=== PATIENT | male | born 1940 | race Caucasian/White ===

== ENCOUNTER → 2021-08-20 | Outpatient (CLI) | payer MEDICARE ==
[~2021-08-20] MED LIST: ACET325 PO; ASPI81CH; ASPI81CH PO; ATOR40TA PO; BENADRYL 25MG PO; CETI5 PO; CHOL10002; CHOL10002 PO; GLUC500 PO; IBUP400 PO; LISI20 PO; MULTIVITAMIN PO; MULVIT PO; VERA120ERB PO; XARELTO20 MG PO
== END | disposition home or self-care (01) ==
LOC: LAB SHORT 11:14 → LAB 11:14
DX: D48.5 Neoplasm of uncertain behavior of skin (principal); L81.4 Other melanin hyperpigmentation
CPT/HCPCS: 88305

== ENCOUNTER 2023-04-24 09:59 | Inpatient (IN) | payer MEDICARE, OTHER ==
[~2023-04-24] VITALS: Ht 190.5 cm; Wt 86.3 kg
[~2023-04-24 09:59] MED LIST changes: -CHOL10002 PO; +VITAMIN D310 MC4 PO
[2023-04-24 12:26] LABS: BASOPHILS ABSOLUTE AUTO 0.08 K/mm3 (0.00-0.23); BASOPHILS PERCENT AUTO 1 % (0-2); EOSINOPHILS ABSOLUTE AUTO 0.06 K/mm3 (0.00-0.68); EOSINOPHILS PERCENT AUTO 1 % (0-6); Hematocrit 43.2 % (37.0-53.0); Hemoglobin 14.2 g/dL (13.5-17.5); IMMATURE GRAN ABSOLUTE AUTO 0.05 K/mm3 (0.00-0.10); IMMATURE GRAN PERCENT AUTO 1 % (0-1); LYMPHOCYTES ABSOLUTE AUTO 1.84 K/mm3 (0.84-5.20); LYMPHOCYTES PERCENT AUTO 19 % (21-46); MONOCYTES ABSOLUTE AUTO 0.56 K/mm3 (0.16-1.47); MONOCYTES PERCENT AUTO 6 % (4-13); Mean Corpuscular HGB 31.3 pg (26.0-34.0); Mean Corpuscular HGB Conc 32.9 g/dL (31.5-36.5); Mean Corpuscular Volume 95 fL (80-100); NEUTROPHILS ABSOLUTE AUTO 7.06 K/mm3 (1.96-9.15); NEUTROPHILS PERCENT AUTO 73 % (41-73); Platelet Count 230 K/mm3 (150-400); RDW Coefficient Variation 12.8 % (11.7-14.2); RDW Standard Deviation 45.1 fL (35.1-46.3); Red Blood Cell Count 4.54 M/mm3 (4.30-5.90); White Blood Cell Count 9.65 K/mm3 (4.00-11.30)
[2023-04-24 12:37] LABS: Albumin, Blood 4.1 g/dL (3.4-5.0); Albumin/Globulin Ratio 1.1 (0.8-1.8); Bilirubin, Total 0.9 mg/dL (0.1-1.0); Bun/Creatinine Ratio 27.5 (12.0-20.0); Calcium, Blood 9.3 mg/dL (8.5-10.1); Creatinine, Blood 1.09 mg/dL (0.60-1.20); Globulin, Blood 3.9 g/dL (2.2-4.0); Magnesium, Blood 2.2 mg/dL (1.6-2.4)
[2023-04-24 12:43] LABS: C-REACTIVE PROTEIN, EXT RANGE 0.944 mg/dL (0.000-0.300)
[2023-04-24 15:58] VITALS: BP 172/93
[2023-04-24] MEDS ORDERED: LOSA50 PO (16:03)
[2023-04-24] MEDS ORDERED: ATOR20 PO (16:04)
--- NOTE | 2023-04-24 19:22 | NUR ---
PT ADMITTED THIS AFT. CHEST PAIN WHICH HE HAD FOR 3 DAYS, RESOLVED AT THIS TIME. TROP TRENDING DOWN, NOW AT 84. A.O X3, PLEASANT COOP . DENIES PAIN AT THIS TIME. HERE FOR A CARDIAC WORKUP. NO ORDERS AT THIS TIME. PLACED PT ON NO CAFFEINE, FOR POSSIBLE STRESS TEST. PT INDEPENDANT IN ROOM. BED IN LOW POSITION, CALL LITE IN REACH, CALLS APPROP
[2023-04-24 20:08] VITALS: BP 129/77
[2023-04-25 05:02] LABS: BASOPHILS ABSOLUTE AUTO 0.07 K/mm3 (0.00-0.23); BASOPHILS PERCENT AUTO 1 % (0-2); EOSINOPHILS PERCENT AUTO 1 % (0-6); Hematocrit 41.7 % (37.0-53.0); IMMATURE GRAN ABSOLUTE AUTO 0.02 K/mm3 (0.00-0.10); IMMATURE GRAN PERCENT AUTO 0 % (0-1); LYMPHOCYTES ABSOLUTE AUTO 1.96 K/mm3 (0.84-5.20); LYMPHOCYTES PERCENT AUTO 27 % (21-46); MONOCYTES ABSOLUTE AUTO 0.57 K/mm3 (0.16-1.47); MONOCYTES PERCENT AUTO 8 % (4-13); Mean Corpuscular HGB 31.5 pg (26.0-34.0); Mean Corpuscular HGB Conc 33.6 g/dL (31.5-36.5); Mean Corpuscular Volume 94 fL (80-100); Mean Platelet Volume 8.7 fL (9.1-12.4); NEUTROPHILS ABSOLUTE AUTO 4.57 K/mm3 (1.96-9.15); NEUTROPHILS PERCENT AUTO 63 % (41-73); Platelet Count 189 K/mm3 (150-400); RDW Coefficient Variation 12.6 % (11.7-14.2); RDW Standard Deviation 43.8 fL (35.1-46.3); Red Blood Cell Count 4.44 M/mm3 (4.30-5.90); White Blood Cell Count 7.29 K/mm3 (4.00-11.30)
[2023-04-25 05:20] VITALS: BP 144/75
--- NOTE | 2023-04-25 05:38 | NUR ---
SUMMARY: PT A/OX4, IS INDPENDENT IN ROOM AND SPECIFIES NEEDS. HE REMAINS ON TELE IN NSR AT 60'S BPM AND DENIES CP AND ALL OTHER S/S CARDIAC DISTRESS. MD JALILATED PLAN FOR STRESS TEST TODAY BUT ORDER HAS NOT BEEN PLACED, CAFFEINE IS BEING HELD JUST IN CASE. TROPS TRENDING DOWNWARD, NOW 86. NO ACUTE CHANGES, VSS/AFEBRILE. WCTM AND REPORT TO DAY RN.
[2023-04-25 05:47] LABS: Albumin, Blood 3.5 g/dL (3.4-5.0); Albumin/Globulin Ratio 1.1 (0.8-1.8); Bilirubin, Total 0.8 mg/dL (0.1-1.0); Bun/Creatinine Ratio 25.2 (12.0-20.0); Calcium, Blood 8.6 mg/dL (8.5-10.1); Creatinine, Blood 1.03 mg/dL (0.60-1.20); Globulin, Blood 3.3 g/dL (2.2-4.0); Magnesium, Blood 1.9 mg/dL (1.6-2.4); Phosphorus, Blood 3.2 mg/dL (2.5-4.9); Potassium, Blood 4.5 mmol/L (3.5-5.5); Total Protein, Blood 6.8 g/dL (6.4-8.2)
[2023-04-25 08:00] VITALS: BP 149/93
[2023-04-25 17:18] VITALS: BP 125/70
--- NOTE | 2023-04-25 17:56 | NUR ---
SHIFT SUMMARY PT A&OX4 AND PLEASANT. INDEPENDENT IN ROOM. AT BEDSIDE T/O DAY. PT COMPLETED FIRST PART OF STRESS TEST TODAY. SECOND PART OF STRESS TEST TO BE COMPLETED TOMORROW. PT INFORMED OF NO CAFFINE AFTER 1999 TONIGHT AND NPO AT MIDNIGHT.BP SLIGHTLY ELEVATED THIS MORNING BUT WNL THIS AFTERNOON. ELEVATED NO EVENTS ON TELE. NO C/O OF CHEST OR LEFT ARM PAIN. BED IN LOWEST POSITION AND CALL LIGHT IN REACH.
[2023-04-25 21:00] VITALS: BP 125/77
--- NOTE | 2023-04-26 06:17 | NUR ---
SUMMARY: PT A/OX4, INDEPENDENT IN ROOM AND SPECIFIES NEEDS APPROPRIATELY. HE REMAINS S.WAYNE-NSR ON TELE AT 50'S-60'S BPM AND DENIES CP AND ALL OTHER S/S CARDIAC DISTRESS. 2ND PART OF STRESS PLANNED TODAY AT 0830. HE'S BEEN NPO SINCE [place] AND W/O CAFFEINE SINCE DAY SHIFT. NO ACUTE CHANGES, VSS/AFEBRILE. WCTM AND REPORT TO DAY RN.
[2023-04-26 07:34] VITALS: BP 142/75
[2023-04-26 15:56] VITALS: BP 127/65
--- NOTE | 2023-04-26 19:26 | NUR ---
SHIFT SUMMARY PT COMPLETED SECOND PART OF STRESS TEST TODAY. AFTER REVIEWING RESULTS, DR GAR WOULD LIKE TO KEEP PT ANOTER NIGHT. EMBRYOLOGY TEACHER, DR BENSON CONSULTED. THIS NURSE SPOKE WITH DR BENSON BUT MARCELINO BUT MARCELINO WAS WITH ANOTHER PT AND ASKED TO BE CALLED TOMORROW. DR GAR REQUESTED THAT PT IS NPO AT MIDNIGHT FOR POSSIBLE ANGIOGRAM TOMORROW. PT DENIES CP/PRESSURE. INDPENDENT IN ROOM. AT BEDSIDE T/O DAY. BED IN LOWEST POSITION AND CALL LIGHT IN REACH.
[2023-04-26 19:50] VITALS: BP 114/73
[2023-04-27] VITALS (8 sets, daily range): BP systolic 133–153; BP diastolic 78–94
[2023-04-27 05:06] LABS: BASOPHILS ABSOLUTE AUTO 0.07 K/mm3 (0.00-0.23); BASOPHILS PERCENT AUTO 1 % (0-2); EOSINOPHILS ABSOLUTE AUTO 0.11 K/mm3 (0.00-0.68); EOSINOPHILS PERCENT AUTO 2 % (0-6); Hematocrit 45.2 % (37.0-53.0); Hemoglobin 14.8 g/dL (13.5-17.5); IMMATURE GRAN ABSOLUTE AUTO 0.03 K/mm3 (0.00-0.10); IMMATURE GRAN PERCENT AUTO 0 % (0-1); LYMPHOCYTES PERCENT AUTO 33 % (21-46); MONOCYTES ABSOLUTE AUTO 0.59 K/mm3 (0.16-1.47); MONOCYTES PERCENT AUTO 8 % (4-13); Mean Corpuscular HGB 30.6 pg (26.0-34.0); Mean Corpuscular HGB Conc 32.7 g/dL (31.5-36.5); Mean Corpuscular Volume 94 fL (80-100); Mean Platelet Volume 8.8 fL (9.1-12.4); NEUTROPHILS ABSOLUTE AUTO 4.14 K/mm3 (1.96-9.15); NEUTROPHILS PERCENT AUTO 56 % (41-73); Platelet Count 228 K/mm3 (150-400); RDW Coefficient Variation 12.4 % (11.7-14.2); RDW Standard Deviation 43.3 fL (35.1-46.3); Red Blood Cell Count 4.83 M/mm3 (4.30-5.90); White Blood Cell Count 7.34 K/mm3 (4.00-11.30)
--- NOTE | 2023-04-27 05:38 | NUR ---
SHIFT SUMMARY NO EVENTS OVERNIGHT. PT HAS BEEN NPO SINCE MIDNIGHT INCASE PT NEEDS AN ANGIO TODAY IF RECOMMENDED BY CARDIOLOGY. Q1H FIRE SAFETY CHECKS COMPLETED WITH NO IGNITION SOURCES FOUND
[2023-04-27 06:06] LABS: Bun/Creatinine Ratio 30.3 (12.0-20.0); Creatinine, Blood 1.09 mg/dL (0.60-1.20); Potassium, Blood 4.5 mmol/L (3.5-5.5)
--- NOTE | 2023-04-27 13:29 | NUR ---
DR. BENSON IN TO SEE PT THIS MORNING AND PLANNED FOR ANGIOGRAM. AT PT SIDE DURING INTERVIEW AND AGREED TO PROCEDURE. NOW PICKED UP AND TAKEN TO [facility]. BELONGINGS TAKEN TO ROOM PCU 14. REPORT GIVEN TO JEREMIAS BAKER.
--- NOTE | 2023-04-27 14:52 | NUR ---
PT TRANSFERED TO PCU 14 POST ANGIOGRAM PT CAME TO THE ROOM VIA WHEELECHAIR POST ANGIO. THEY WENT THROUGH THE RIGHT RADIAL. HE HAS A TR BAND IN PLACE AND IT WILL NEED TO BE LEFT ON FOR TWO HOURS SINCE ACT >200. THERE IS A START OF 11CC'S OF AIR IN THE BALLOON. THIER IS NO SIGNS OF HEMATOMA, SWELLING, PAIN, OR BLEEDING. PT'S IS AT BEDSIDE. THEY WERE NOT ABLE TO FINISH THE ANGIO TODAY AND PLAN FOR THE PAITENT TO GO FOR ANOTHER ANGIOGRAM TOMORROW AND WILL GO THROUGH HIS GROIN. HE WILL BE NPO AT 0000 FOR THE PROCEDURE.
--- NOTE | 2023-04-27 18:35 | NUR ---
SHIFT SUMMARY PT TRANSFERED FROM MEDICAL FLOOR THIS AFTERNOON POST ANGIO. THEY ACCESSED HIS RIGHT RADIAL AND THE SITE IS RECOVERED OF 1824. NO SIGNS OF BLEEDING, HEMATOMA, N/T, OR PAIN. PT IS SBA DUE TO LINES AND HE HAS BEEN A&OX4/ FAIRLY IND IN THE ROOM. THE PT IS VERY PLEASENT AND CALLS APPROPRIATELY. ON TELE HE HAS BEEN SB/SR 50'S-70'S. HE IS ON ROOM AIR AND DENIES SOB. HE WILL BE NPO AT MIDNIGHT FOR A REPEAT ANGIOGRAM. NO ACUTE EVENTS SINCE ARRIVAL TO PCU 14. FAMILY AND PT EDUCATED ON FIRE IGNITION RISK AND SAFETY.
--- NOTE | 2023-04-27 18:45 | NUR ---
TR BAND RECOVERY INFLATED WITH 11CC'S AT 1430. WAITED TWO HOURS TO DEFLATE DO TO ACT >200. -2CC AT 1630, 9CC'S LEFT. -2CC AT 1645, 7CC'S LEFT. -2CC AT 1655, 5CC'S LEFT. -2CC [id number], 3CC'S LEFT. -3CC AT 1720, 0CC'S LEFT. TR BAND LEFT ON FOR ONE HOUR AT 1825 I REMOVED THE TR BAND AND RECOVERED THE SITE. SITE CLEANED WITH CHOLRIHEXIDINE AND A TEGADERM PALCED. ARM BOARD IN PLACE FOR REMINDERS TO NOT USE THE RIGHT WRIST.
[2023-04-28] VITALS (11 sets, daily range): BP systolic 74–151; BP diastolic 64–94
--- NOTE | 2023-04-28 06:32 | NUR ---
SHIFT SUMMARY PATIENT ALERT AND ORIENTED X4, STANDBY ASSIST TO THE RESTROOM. CURRENTLY NPO PENDING PROCEDURE. PATIENT HAS HAD NO COMPLAINTS OF CHEST PAIN OR SHORTNESS OF BREATH. NO SIGNS OF BLEEDING OR BRUSING AT ANGIO SITE ON R WRIST, ARM BOARD IN PLACE. PATIENT ON ROOM AIR. VITAL SIGNS STABLE. NO ACUTE ISSUES NOTED OVERNIGHT. PATIENT ASSESSED FOR IGNITION RISK AND EDUCATED ON FIRE SAFETY IN THE HOSPITAL. WILL CONTINUE TO MONITOR. CALL LIGHT WITHIN REACH.
--- NOTE | 2023-04-28 17:42 | NUR ---
SHIFT SUMMARY PT IS A&OX4, CALLS APPROPRIATELY, AND HAS BEEN IND IN THE ROOM. ON TELE THE PT HAS BEEN SR 70'S-80'S. HE IS ON RA AND DENIES SOB. PT HAD AN ANGIO TODAY AND THEY ACCESSED HIS RIGHT GROIN. AT 1900 HE WILL BE ABLE TO GET OUT OF BED. DR. BENSON WANTED HIM BR FOR 6 HOUR. HE HAS BEEN RAISED FIFTEEN DEGREES EVERY HOUR UNTIL HE WAS ABLE TO SIT UP TO 45 DEGREES. SITE HAS BEEN NON-TENDER, W/O HEMATOMA, BLEEDING, OOZING, OR BRUISING. THE SITE IS SEALED WITH CHG TEG AND IT IS D/C/I. NO ACUTE EVENTS, VSS. FAMILY AND PT ASSESSED AND EDUCATED ON FIRE IGNITION RISK.
--- NOTE | 2023-04-28 19:41 | NUR ---
ASSUMED CARE OF PT AT 1900 PT RESTING IN BED WITH AT BEDSIDE. PT UP AND WALKING AROUND UNIT ONE TIME. RESTLESS. GROIN AREA FREE FROM ANY ISSUES AT THIS TIME. C/D/I. BED IN LOW POSITION, CALL LIGHT WITHIN REACH. PT A/O X4. PT EDUCATED ON HAVING ONE STAFF PERSON IN ROOM IF PT IS UP OUT OF BED. PLEASE SEE FULL ASSESSMENT FOR FURTHER INFORMATION.
[2023-04-29] VITALS: BP 140/82
[2023-04-29 04:04] LABS: BASOPHILS ABSOLUTE AUTO 0.07 K/mm3 (0.00-0.23); BASOPHILS PERCENT AUTO 1 % (0-2); EOSINOPHILS ABSOLUTE AUTO 0.09 K/mm3 (0.00-0.68); EOSINOPHILS PERCENT AUTO 1 % (0-6); Hematocrit 42.3 % (37.0-53.0); IMMATURE GRAN ABSOLUTE AUTO 0.05 K/mm3 (0.00-0.10); IMMATURE GRAN PERCENT AUTO 1 % (0-1); LYMPHOCYTES ABSOLUTE AUTO 2.08 K/mm3 (0.84-5.20); LYMPHOCYTES PERCENT AUTO 20 % (21-46); MONOCYTES ABSOLUTE AUTO 0.72 K/mm3 (0.16-1.47); MONOCYTES PERCENT AUTO 7 % (4-13); Mean Corpuscular HGB 30.8 pg (26.0-34.0); Mean Corpuscular HGB Conc 33.1 g/dL (31.5-36.5); Mean Corpuscular Volume 93 fL (80-100); NEUTROPHILS PERCENT AUTO 71 % (41-73); Platelet Count 223 K/mm3 (150-400); RDW Coefficient Variation 12.7 % (11.7-14.2); RDW Standard Deviation 43.8 fL (35.1-46.3); Red Blood Cell Count 4.54 M/mm3 (4.30-5.90); White Blood Cell Count 10.41 K/mm3 (4.00-11.30)
[2023-04-29 04:28] LABS: Bun/Creatinine Ratio 26.3 (12.0-20.0); Calcium, Blood 8.5 mg/dL (8.5-10.1); Creatinine, Blood 1.18 mg/dL (0.60-1.20); Potassium, Blood 4.5 mmol/L (3.5-5.5)
[2023-04-29 05:57] VITALS: BP 147/80
--- NOTE | 2023-04-29 06:23 | NUR ---
END OF SHIFT SUMMARY PT RESTED IN BED ALL NIGHT WITH MINIMAL BATHROOM NEEDS. PT AMBULATES WITHOUT ASSISTANCE WITH NO DIFFICULTY. NO OXYGEN SUPPLEMENATION NEEDED. NO ACUTE CHANGES THIS SHIFT. SR WITH HR 60'S. ONE INSTANCE OF VTACH CAPTURED ON TELE. BED IN LOW POSITION, CALL LIGHT WITHIN REACH. WILL CONTINUE TO MONITOR UNTIL AM RN GIVEN REPORT.
[2023-04-29] MEDS ORDERED: CLOP75 PO (10:31)
--- NOTE | 2023-04-29 11:47 | NUR ---
PT'S IV REMOVED AND PRESSURE DRESSED. PT AND FAMILY EXPRESSED UNDERSTANDING OF DC TEACHING AND DENIES FURTHER NEEDS
== END 2023-04-29 11:27 | disposition home or self-care (01) | DRG 247 ==
LOC: ER 09:59 → MEDS 10:00 → PCU 04-27 13:04
PROVIDERS: Internal Medicine; Student in an Organized Health Care Education/Training Program; ADMIT Family Medicine
PROC: 027034Z Dilation of Coronary Artery, One Artery with Drug-eluting Intraluminal Device, Percutaneous Approach (ICD-10-PCS; principal; 2023-04-27)
PROC: 02F03ZZ Fragmentation in Coronary Artery, One Artery, Percutaneous Approach (ICD-10-PCS; 2023-04-27)
PROC: B240ZZ3 Ultrasonography of Single Coronary Artery, Intravascular (ICD-10-PCS; 2023-04-27)
PROC: 4A023N7 Measurement of Cardiac Sampling and Pressure, Left Heart, Percutaneous Approach (ICD-10-PCS; 2023-04-27)
PROC: B2151ZZ Fluoroscopy of Left Heart using Low Osmolar Contrast (ICD-10-PCS; 2023-04-27)
PROC: B2101ZZ Fluoroscopy of Single Coronary Artery using Low Osmolar Contrast (ICD-10-PCS; 2023-04-27)
DX: I25.110 Atherosclerotic heart disease of native coronary artery with unstable angina pectoris (principal); R77.8 Other specified abnormalities of plasma proteins; I49.3 Ventricular premature depolarization; I10 Essential (primary) hypertension; I73.9 Peripheral vascular disease, unspecified; N40.0 Benign prostatic hyperplasia without lower urinary tract symptoms; E78.5 Hyperlipidemia, unspecified; I72.4 Aneurysm of artery of lower extremity; Z79.82 Long term (current) use of aspirin; Z79.899 Other long term (current) drug therapy; Z79.1 Long term (current) use of non-steroidal anti-inflammatories (NSAID); Z90.89 Acquired absence of other organs; Z98.890 Other specified postprocedural states
CPT/HCPCS: 36415; 70450; 71046; 76937; 78452; 80048; 80053; 82550; 83735; 84100; 84484; 85025; 85347; 86140; 92978; 93005; 93010; 93017; 93454; 94762; 96372; 99152; 99153; 99285-25; A9270; A9500; C1725; C1753; C1760; C1761; C1769; C1874; C1887; C1894; C8929; C9602; C9607; G0378; J0461; J0706; J1644; J1650; J2250; J2785; J3010; J7030; J7050; Q9957; Q9967

== ENCOUNTER → 2024-07-02 | Outpatient (CLI) | payer MEDICARE, OTHER ==
[~2024-07-02] MED LIST changes: +ATOR20 PO; +CLOP75 PO; +LOSA50 PO
== END ==
LOC: LAB 08:42 → LAB SHORT 08:42
DX: B35.1 Tinea unguium (principal); L60.2 Onychogryphosis
CPT/HCPCS: 88305; 88312

== ENCOUNTER 2024-10-06 18:46 | Emergency (ER) | payer MEDICARE, OTHER ==
[~2024-10-06] VITALS: Ht 190.5 cm; Wt 88.5 kg
[2024-10-06 19:16] LABS: BASOPHILS ABSOLUTE AUTO 0.09 K/mm3 (0.00-0.23); BASOPHILS PERCENT AUTO 1 % (0-2); EOSINOPHILS ABSOLUTE AUTO 0.17 K/mm3 (0.00-0.68); EOSINOPHILS PERCENT AUTO 2 % (0-6); Hematocrit 41.9 % (37.0-53.0); Hemoglobin 13.8 g/dL (13.5-17.5); IMMATURE GRAN ABSOLUTE AUTO 0.02 K/mm3 (0.00-0.10); IMMATURE GRAN PERCENT AUTO 0 % (0-1); LYMPHOCYTES PERCENT AUTO 35 % (21-46); MONOCYTES ABSOLUTE AUTO 0.63 K/mm3 (0.16-1.47); MONOCYTES PERCENT AUTO 8 % (4-13); Mean Corpuscular HGB 31.7 pg (26.0-34.0); Mean Corpuscular HGB Conc 32.9 g/dL (31.5-36.5); Mean Corpuscular Volume 96 fL (80-100); Mean Platelet Volume 9.2 fL (9.1-12.4); NEUTROPHILS ABSOLUTE AUTO 4.41 K/mm3 (1.96-9.15); NEUTROPHILS PERCENT AUTO 54 % (41-73); Platelet Count 196 K/mm3 (150-400); RDW Coefficient Variation 12.5 % (11.7-14.2); RDW Standard Deviation 44.6 fL (35.1-46.3); Red Blood Cell Count 4.35 M/mm3 (4.30-5.90); White Blood Cell Count 8.12 K/mm3 (4.00-11.30)
[2024-10-06 19:26] LABS: Albumin, Blood 3.8 g/dL (3.4-5.0); Albumin/Globulin Ratio 1.1 (0.8-1.8); Bilirubin, Total 0.7 mg/dL (0.1-1.0); Bun/Creatinine Ratio 28.2 (12.0-20.0); Calcium, Blood 8.7 mg/dL (8.5-10.1); Creatinine, Blood 1.1 mg/dL (0.60-1.20); Globulin, Blood 3.4 g/dL (2.2-4.0); Potassium, Blood 4.5 mmol/L (3.5-5.5); Total Protein, Blood 7.2 g/dL (6.4-8.2)
[2024-10-06 22:15] VITALS: BP 161/85
== END 2024-10-06 22:45 | disposition home or self-care (01) ==
LOC: ER 18:46
PROVIDERS: Student in an Organized Health Care Education/Training Program
DX: R07.89 Other chest pain (principal); I10 Essential (primary) hypertension; I25.10 Atherosclerotic heart disease of native coronary artery without angina pectoris; Z95.5 Presence of coronary angioplasty implant and graft; Z79.82 Long term (current) use of aspirin; Z79.01 Long term (current) use of anticoagulants; Z79.899 Other long term (current) drug therapy
CPT/HCPCS: 71045; 80053; 84484; 85025; 93005; 93010; 99285-25